=== PATIENT | female | born 1950 | race Caucasian/White ===

== ENCOUNTER 2023-03-25 10:45 | Day surgery (SDC) | payer MEDICARE, SELFPAY ==
[2023-03-25] VITALS (10 sets, daily range): BP systolic 112–126; BP diastolic 54–64; PULSE 55–70; RESP 14–18; TEMP 36.2–36.6; O2SAT 96–99; BMI 30.5
--- NOTE | ~2023-03-25 | IR_ITS ---
EXAMINATION: IR THORACIC VERTEBROPLASTY IR LUMBAR VERTEBROPLASTY CLINICAL INFORMATION: Osteoporosis. Compression fractures. Patient remains in severe pain. COMPARISON: MRI images of the lumbar and lower thoracic spine performed at [facility] on 03/01/2023 were reviewed FLUOROSCOPY TIME: 21.4 minutes DOSE AREA PRODUCT: 3059 uGy-m2 (microgray-meter squared) TECHNIQUE: Prior to the procedure the patient was seen and reviewed and the nature of the procedure with attendant risks and benefits explained to the patient. Following detailed discussion a decision was made to proceed with the kyphoplasty. Consent for the procedure was given. The patient was brought to the angio suite and placed in a prone position. Fluoroscopy in AP and lateral projections were used for image guidance throughout the procedure. Anesthesia/sedation was provided by an anesthesiologist as separately recorded. The patient was brought to the angio suite and placed in a prone position. AP and lateral fluoroscopy was used for image guidance throughout the procedure. Preprocedure imaging demonstrates the known fractures at T10 and at superior endplate of L1. It is noted that there is new inferior endplate compression at T12. Considering the challenges the patient has with sedation and getting into the appropriate positioning, we elected to treat the 3 fractures and a single session. Appropriate access points were marked on the skin using fluoroscopy. The back was prepped and draped in the usual sterile manner. We began by dressing of the T10 fracture. Following injection of 1% Lidocaine with bicarbonate and also 2 cc. each side of 0.5% Bupivicaine for local anesthesia and using biplane fluoroscopy a Kyphx One Step needle was advanced to the right side of the vertebral body. Satisfactory position was confirmed by fluoroscopy. [ ] The Trochar was removed and a drill was advanced anteriorly. A pusher was inserted and the anterior cortex probed to confirm no perforation of the anterior cortex. Having done this we then performed the same procedure on the patient?s left side. Having done this [ ] Kyphx Inflatable Bone Tamp balloons were inserted through the right and left cannulae and advanced under fluoroscopic guidance into appropriate positions in the vertebral body. The balloons were inflated. Having done this, the balloons were gently removed. The bone voids created were filled with 5] ml of bone cement. The bone cement is Kyphx-HVR. Once the bone cement was hardened the cannula were removed. Sterile dressings were applied. We then addressed the L1 fracture Following injection of 1% Lidocaine with bicarbonate and also 2 cc. each side of 0.5% Bupivicaine for local anesthesia and using biplane fluoroscopy a Kyphx One Step needle was advanced to the right side of the vertebral body. Satisfactory position was confirmed by fluoroscopy. [ ] The Trochar was removed and a drill was advanced anteriorly. A pusher was inserted and the anterior cortex probed to confirm no perforation of the anterior cortex. Having done this we then performed the same procedure on the patient?s left side. Having done this [ ] Kyphx Inflatable Bone Tamp balloons were inserted through the right and left cannulae and advanced under fluoroscopic guidance into appropriate positions in the vertebral body. The balloons were inflated. Having done this, the balloons were gently removed. The bone voids created were filled with 8 ml of bone cement. The bone cement is Kyphx-HVR. Once the bone cement was hardened the cannula were removed. Sterile dressings were applied. Finally, we addressed the T12 fracture Following injection of 1% Lidocaine with bicarbonate and also 2 cc. each side of 0.5% Bupivicaine for local anesthesia and using biplane fluoroscopy a Kyphx One Step needle was advanced to the right side of the vertebral body. Satisfactory position was confirmed by fluoroscopy. [ ] The Trochar was removed and a drill was advanced anteriorly. A pusher was inserted and the anterior cortex probed to confirm no perforation of the anterior cortex. Having done this we then performed the same procedure on the patient?s left side. Having done this [ ] Kyphx Inflatable Bone Tamp balloons were inserted through the right and left cannulae and advanced under fluoroscopic guidance into appropriate positions in the vertebral body. The balloons were inflated. Having done this, the balloons were gently removed. The bone voids created were filled with 6.8ml of bone cement. The bone cement is Kyphx-HVR. Once the bone cement was hardened the cannula were removed. Sterile dressings were applied. The patient tolerated the procedure well with no immediate complications. FINDINGS: Acute compression fracture of T10, T12 and L1 vertebral bodies. Technically successful kyphoplasty treatment at these levels as above. IR/IR kyphoplasty lumbar IMPRESSION: Acute compression fracture of T10, T12 and L1 vertebral bodies treated balloon kyphoplasty as above.
[2023-03-25 11:50] LABS: MANUAL DIFF FLAG NO
[2023-03-25 11:56] LABS: Basophils Absolute Auto 0.1 X10*3/uL (0.0-0.2); Basophils Percent Auto 0.7 % (0-2); Eosinophils Absolute Auto 0.1 X10*3/uL (0.0-0.4); Hematocrit 32.8 % (37.0-47.0); Hemoglobin 10.4 g/dl (12.0-16.0); Imm Gran Abs Auto 0.03 X10*3/uL (0.00-0.03); Imm Gran Pct Auto 0.4 % (0.0-0.4); Lymphocytes Absolute Auto 1.7 X10*3/uL (1.2-4.9); Lymphocytes Percent Auto 24.5 % (20-40); Mean Corpuscular HGB Conc 31.7 g/dl (31.0-35.0); Mean Corpuscular Hemoglobin 29.1 pg (27.0-33.0); Mean Corpuscular Volume 91.6 fL (80.0-98.0); Mean Platelet Volume 9.3 fL (9.4-12.3); Monocytes Absolute Auto 0.5 X10*3/uL (0.1-1.2); Monocytes Percent Auto 7.5 % (2-11); Neutrophils Absolute Auto 4.5 x10*3/uL (2.0-8.3); Neutrophils Percent Auto 64.9 % (45-73); Platelet Count 259 X10*3/uL (160-400); Red Blood Count 3.58 X10*6/uL (4.20-5.50); Red Cell Distribution Width 14.2 % (11.0-16.0); White Blood Count 6.9 X10*3/uL (4.8-10.8)
--- NOTE | 2023-03-25 12:01 | P.CONAN_ITS ---
HPI - Anesthesia Eval Consult details Narrative: Patient for t-10 kyphoplasty under MAC [facility] Past Medical History Medical History Memory disorder Parkinson disease Hypothyroidism Fracture of femur Fracture of pelvis Depression Cataracts, bilateral Anxiety Osteoporosis Hyperlipidemia HTN (hypertension) Family History Family history of problems with anesthesia: No Surgical History Surgical History History of dental surgery History of colonoscopy History of total hip replacement History of back surgery History of Problems with Anesthesia: No Social History Social History Patient Tobacco Use Status: Former Tobacco user Cigarette Packs Per Day: 2 Cigarettes Per Day: 40.0 Years Smoked: 5 Use of substances other than those prescribed or required for medical reasons: No Are you DNR?: No Advance Directives: No Advance Directives Information Provided: Yes Meds Allergies Allergy/AdvReac Type Severity Reaction Status Date / Time No Known Allergies Allergy Verified 03/25/23 11:53 Home Medications Medication Instructions Recorded Confirmed Last Taken Type alendronate 70 mg tablet 70 mg PO DAILY 03/25/23 03/25/23 Unknown History ascorbic acid (vitamin C) 500 mg 500 mg PO DAILY 03/25/23 03/25/23 Unknown History tablet (Vitamin C) calcium 500 mg tablet 500 mg PO DAILY 03/25/23 03/25/23 Unknown History celecoxib 200 mg capsule (Celebrex) 200 mg PO DAILY 03/25/23 03/25/23 Unknown History cholecalciferol (vitamin D3) 25 25 mcg PO DAILY 03/25/23 03/25/23 Unknown History mcg (1,000 unit) tablet (Vitamin D3) diclofenac sodium 1 % topical gel 1 ea topical QID 03/25/23 03/25/23 Unknown History ferrous sulfate 324 mg (65 mg 324 mg PO DAILY 03/25/23 03/25/23 Unknown History iron) tablet,delayed release gabapentin 100 mg capsule 100 mg PO TID 03/25/23 03/25/23 Unknown History levothyroxine 75 mcg tablet 75 mcg PO DAILY 03/25/23 03/25/23 Unknown History lovastatin 20 mg tablet 20 mg PO DAILY 03/25/23 03/25/23 Unknown History mirtazapine 15 mg tablet 7.5 mg PO DAILY 03/25/23 03/25/23 Unknown History pramipexole 0.25 mg tablet 0.25 mg PO DAILY 03/25/23 03/25/23 Unknown History rotigotine 1 mg/24 hour 1 mg transdermal DAILY 03/25/23 03/25/23 Unknown History transdermal 24 hour patch (Neupro) sertraline 100 mg tablet 100 mg PO DAILY 03/25/23 03/25/23 Unknown History zinc 50 mg tablet 50 mg PO DAILY 03/25/23 03/25/23 Unknown History Exam Exam Date and Time: March 25, 2023 1201 Height,Weight and Vital Signs: Height 4 ft Weight 45.359 kg Pertinent Lab Results Pertinent Lab Results: Laboratory Tests 03/25/23 11:44 WBC 6.9 RBC 3.58 L Hgb 10.4 L Hct 32.8 L MCV 91.6 MCH 29.1 MCHC 31.7 RDW 14.2 Plt Count 259 MPV 9.3 L Immature Gran % (Auto) 0.4 Neut % (Auto) 64.9 Lymph % (Auto) 24.5 [place] % (Auto) 7.5 Eos % (Auto) 2.0 Baso % (Auto) 0.7 Lymph # (Auto) 1.7 [place] # (Auto) 0.5 Eos # (Auto) 0.1 Baso # (Auto) 0.1 Abs Immat Gran (auto) 0.03 Absolute Neuts (auto) 4.5 Absolute Nucleated RBC 0.000 Nucleated RBC % (auto) 0.0 Airway Mallampati Class: III TM Dist: <=3cm Neck ROM: Poor Loose/Missing/Broken Teeth: Yes Heart: [id number] Lungs: +b/s bilaterally Assessment and Plan Assessment Anesthesia Assessment: Anesthesia Plan Discussed and Chart Reviewed Final Anesthetic Review Family History of Problems with Anesthesia: No History of Problems with Anesthesia: No NPO: Yes ASA Class: IV Final Preanesthetic Review: No Changes in Pt Med Stat, Meds/Allgs Chart Revi ewed, Consent Obtained/Reviewed and Anes Risks/Benef Reviewed Patient Risk: High Procedure Risk: Intermediate Assessment/Block/Sedation in SS: Assess/Block/Sedation-SS Anesthetic Plan Anesthetic Plan: MAC: and Agree w/ Assess. and Plan Disposition: Standard PACU
[2023-03-25 12:07] LABS: Anion Gap 10 (12-20); Blood Urea Nitrogen 18 mg/dL (9-16); Carbon Dioxide 28 mmol/L (22-29); Chloride 107 mmol/L (96-108); Creatinine Clr Calc Pharmacy 33.1; Estimated Glomerular Filt Rate > 60; Potassium 4.1 mmol/L (3.3-5.1); Sodium 141 mmol/L (135-145)
[2023-03-25] MEDS: Lactated Ringers 1,000 ML 50 ML IVCONT (12:18)
[2023-03-25] MEDS: Ketorolac Tromethamine 30 MG/ML VIAL 15 MG IVPUSH (16:21)
--- NOTE | 2023-03-25 19:02 | PC.NURSE ---
Nurse to nurse report given to patients assisted living.
== END 2023-03-25 18:56 | disposition home or self-care (01) ==
PROVIDERS: Radiology Diagnostic Radiology; Radiology Vascular & Interventional Radiology; Visit Provider Student in an Organized Health Care Education/Training Program
DX: S22.078A Other fracture of T9-T10 vertebra, initial encounter for closed fracture (principal); S32.018A Other fracture of first lumbar vertebra, initial encounter for closed fracture; M81.0 Age-related osteoporosis without current pathological fracture; W01.0XXA Fall on same level from slipping, tripping and stumbling without subsequent striking against object, initial encounter; Y93.9 Activity, unspecified; Y92.9 Unspecified place or not applicable; Y99.8 Other external cause status; Z98.1 Arthrodesis status; G20 Parkinson's disease; I10 Essential (primary) hypertension; E78.5 Hyperlipidemia, unspecified; E03.9 Hypothyroidism, unspecified; Z96.642 Presence of left artificial hip joint; Z87.891 Personal history of nicotine dependence; Z79.899 Other long term (current) drug therapy
CPT/HCPCS: 22513; 22514; 22515; 36415; 80051; 82565; 84520; 85025; 85610; 85730; C1713; J0171; J0461; J0690; J1100; J1170; J1885; J2250; J2371; J2405; Q9967

== ENCOUNTER → 2023-03-25 12:30 | Outpatient (BNV) | payer MEDICARE, SELFPAY | PROVIDERS: Visit Provider Student in an Organized Health Care Education/Training Program | DX: M80.08XA Age-related osteoporosis with current pathological fracture, vertebra(e), initial encounter for fracture (principal) | CPT/HCPCS: 22513; 22515 ==